=== PATIENT | female | born 1930 | race Hispanic/Latino ===

== ENCOUNTER 2016-10-10 11:00 | Outpatient (CLI) | payer MEDICARE, OTHER ==
[2016-10-10 13:07] LABS: Blood Urea Nitrogen 16 mg/dL (7-17)
[2016-10-10] MEDS ORDERED: NACL ONE (13:31)
--- NOTE | 2016-10-10 14:21 | Cat Scan Report ---
CT scan of neck with IV contrast: History: Thyroid calcification. Findings: Laryngeal and tracheal air column appears unremarkable. Pre-and paravertebral soft tissue appears normal. No evidence of adenopathy. The vascular structures grossly appears normal. The right thyroid lobe/dominant nodule measures measures 5.2 x 3.5 cm in coronal imaging. Heterogeneous enhancement is noted. Left thyroid lobe/dominant nodule measures 3.5 x 1.8 cm. Heterogeneous enhancement noted. No significant compression of intervening calcified trachea. Displacement laterally of adjacent vascular structures. Impression: Multinodular goiter. Findings as detailed above.
== END 2016-10-10 11:01 | disposition home or self-care (01) ==
LOC: CT 11:00
PROVIDERS: ATTEND Internal Medicine
DX: E06.9 Thyroiditis, unspecified (principal); R93.8 Abnormal findings on diagnostic imaging of other specified body structures; E04.2 Nontoxic multinodular goiter
CPT/HCPCS: 36415; 70491; 82565; 84520; Q9967

== ENCOUNTER 2016-12-03 13:15 | Emergency (ER) | payer MEDICARE, OTHER ==
[2016-12-03 13:40] VITALS: BP 166/97
[2016-12-03 14:27] LABS: Anion Gap 20 mmol/L; Basophils % (Auto) 0.4 % (0.0-1.8); Blood Urea Nitrogen 16 mg/dL (7-17); Calcium 9.5 mg/dL (8.4-10.2); Carbon Dioxide 26 mmol/L (22-30); Chloride 96.1 mmol/L (98-107); Eosinophils % (Auto) 0.1 % (0.0-4.3); Glucose 120 mg/dL (65-100); Hematocrit 39.7 % (30.3-42.9); Hemoglobin 13.1 gm/dl (10.1-14.3); Mean Corpuscular HGB Conc 33 % (30-34); Mean Corpuscular Hemoglobin 31 pg (28-32); Mean Corpuscular Volume 94 fl (79-97); Platelet Count 202 K/mm3 (140-440); Red Blood Count 4.24 M/mm3 (3.65-5.03); Red Cell Distribution Width 13.5 % (13.2-15.2); Sodium 137 mmol/L (137-145)
[2016-12-03 14:31] LABS: Bacteria,Urine 1+ /HPF (Negative); Bilirubin,Urine NEG (Negative); Blood,Urine MOD (Negative); Ketones,Urine NEG (Negative); Leukocyte Esterase,Urine SM (Negative); Nitrite,Urine NEG (Negative); Urobilinogen,Urine < 2.0 mg/dL (<2.0)
[2016-12-03 14:35] LABS: RBC,Urine > 182.0 /HPF (0.0-6.0); WBC,Urine > 182.0 /HPF (0.0-6.0)
[2016-12-03] MEDS ORDERED: MACROBID PO ONE (16:21)
--- NOTE | 2016-12-03 16:55 | Emergency Department Report ---
ED Female HPI - General Chief complaint: Urogenital-Female Stated complaint: BLOOD IN URINE Time Seen by Provider: 12/03/16 16:18 Source: patient Mode of arrival: Ambulatory Limitations: No Limitations - History of Present Illness Initial comments: 85-year-old female with a past medical history of right kidney surgery, hypertension, and appendectomy was in the hospital complaining of hematuria since this a.m. Patient denies pain, dysuria, fever, nausea, or vomiting. Similar symptoms in the past treated with antibiotics. Patient does not quite know with specific right kidney surgery she has had. - Related Data Home Medications Medication Instructions Recorded Confirmed Last Taken Acetaminophen [Acetaminophen TAB] 2 tab PO PRN PRN 10/27/14 12/03/16 Unknown AtorvaSTATin [Lipitor] 5 mg PO DAILY 10/27/14 12/03/16 10/26/14 Caltrate 600+D3+Min Chew Tab 1 tab PO DAILY 10/27/14 12/03/16 10/27/14 L. Acidophilus/Bifid. Animalis 2 cap PO DAILY 10/27/14 12/03/16 10/27/14 [One-A-Day Trubiotics Capsule] Metoprolol [Lopressor TAB] 1 tab PO DAILY 10/27/14 12/03/16 07/30/15 10:30 One Daily Multivitamin Tablet 1 tab PO DAILY 10/27/14 12/03/16 10/27/14 Previous Rx's Medication Instructions Recorded Last Taken Type Nitrofurantoin [place]/M-Cryst 100 mg PO Q12HR #10 capsule 12/03/16 Unknown Rx [Macrobid CAP] Allergies Allergy/AdvReac Type Severity Reaction Status Date / Time aspirin Allergy BRUISING Verified 10/27/14 11:29 Sulfa (Sulfonamide Allergy Hives Verified 10/27/14 11:29 Antibiotics) ED Review of Systems ROS: Stated complaint: BLOOD IN URINE Other details as noted in HPI Comment: All other systems reviewed and negative Other: Constitutional: No fevers chills Eyes: No eye pain visual changes ENT: No ear pain or throat pain Neck: Denies pain Respiratory: Denies cough wheezing shortness of breath Cardiovascular: Denies chest pain, palpitations, syncope GI: Denies abdominal pain, nausea, vomiting, diarrhea : Denies dysuria Musculoskeletal: Denies back pain Skin: Denies rash, lesions, erythema Neurologic: Denies headache, numbness, weakness Psychiatric: Denies suicidal ideation, hallucinations ED Past Medical Hx - Past Medical History Hx Hypertension: Yes (5YRS) - Surgical History Hx Appendectomy: Yes Additional Surgical History: right kidney, ovaries - Social History Smoking Status: Never Smoker Substance Use Type: None - Medications Home Medications: Home Medications Medication Instructions Recorded Confirmed Last Taken Type Acetaminophen [Acetaminophen TAB] 2 tab PO PRN PRN 10/27/14 12/03/16 Unknown History AtorvaSTATin [Lipitor] 5 mg PO DAILY 10/27/14 12/03/16 10/26/14 History Caltrate 600+D3+Min Chew Tab 1 tab PO DAILY 10/27/14 12/03/16 10/27/14 History L. Acidophilus/Bifid. Animalis 2 cap PO DAILY 10/27/14 12/03/16 10/27/14 History [One-A-Day Trubiotics Capsule] Metoprolol [Lopressor TAB] 1 tab PO DAILY 10/27/14 12/03/16 07/30/15 10:30 History One Daily Multivitamin Tablet 1 tab PO DAILY 10/27/14 12/03/16 10/27/14 History Nitrofurantoin [place]/M-Cryst 100 mg PO Q12HR #10 capsule 12/03/16 Unknown Rx [Macrobid CAP] ED Physical Exam - General Limitations: No Limitations - Other Other exam information: General: No limitations, patient is alert in no acute distress Head exam: Atraumatic, normocephalic Eyes exam: Normal appearance, pupils equal reactive to light, extraocular movements intact ENT: Moist mucous membrane, normal oropharynx Neck exam: Normal inspection, full range of motion, no meningismus nontender Respiratory exam: Clear to auscultation bilateral, no wheezes, rales, crackles Cardiovascular: Normal rate and rhythm, normal heart sounds Abdomen: Soft, nondistended, and nontender, with normal bowel sounds, no rebound, or guarding Extremity: Full range of motion normal inspection no deformity Back: Normal Inspection, full range of motion, no tenderness Neurologic: Alert, oriented x3, cranial nerves intact, no motor or sensory deficit Psychiatric: normal affect, normal mood Skin: Warm, dry, intact ED Course Vital Signs 12/03/16 12/03/16 13:34 15:21 Temperature 98.2 F Pulse Rate 95 H Respiratory 18 18 Rate Blood Pressure 166/97 O2 Sat by Pulse 99 Oximetry - Reevaluation(s) Reevaluation #1: 12/03/16 Macrobid by mouth given in the ED ED Medical Decision Making - Lab Data Result diagrams: 12/03/16 13:44 12/03/16 13:44 Lab Results 12/03/16 12/03/16 12/03/16 Range/Units 13:44 13:44 14:02 WBC 9.0 (4.5-11.0) K/mm3 RBC 4.24 (3.65-5.03) M/mm3 Hgb 13.1 (10.1-14.3) gm/dl Hct 39.7 (30.3-42.9) % MCV 94 (79-97) fl MCH 31 (28-32) pg MCHC 33 (30-34) % RDW 13.5 (13.2-15.2) % Plt Count 202 (140-440) K/mm3 Lymph % (Auto) 9.8 L (13.4-35.0) % [place] % (Auto) 7.4 H (0.0-7.3) % Eos % (Auto) 0.1 (0.0-4.3) % Baso % (Auto) 0.4 (0.0-1.8) % Lymph # 0.9 L (1.2-5.4) K/mm3 [place] # 0.7 (0.0-0.8) K/mm3 Eos # 0.0 (0.0-0.4) K/mm3 Baso # 0.0 (0.0-0.1) K/mm3 Seg Neutrophils % 82.3 H (40.0-70.0) % Seg Neutrophils # 7.4 (1.8-7.7) K/mm3 Sodium 137 (137-145) mmol/L Potassium 5.0 (3.6-5.0) mmol/L Chloride 96.1 L (98-107) mmol/L Carbon Dioxide 26 (22-30) mmol/L Anion Gap 20 mmol/L BUN 16 (7-17) mg/dL Creatinine 0.8 (0.7-1.2) mg/dL Estimated GFR > 60 ml/min BUN/Creatinine Ratio 20.00 % Glucose 120 H (65-100) mg/dL Calcium 9.5 (8.4-10.2) mg/dL Urine Color Red (Yellow) Urine Turbidity Clear (Clear) Urine pH 6.0 (5.0-7.0) Ur Specific [place] 1.016 (1.003-1.030) Urine Protein 100 mg/dl (Negative) mg/dL Urine Glucose (UA) Neg (Negative) mg/dL Urine Ketones Neg (Negative) mg/dL Urine Blood Mod (Negative) Urine Nitrite Neg (Negative) Urine Bilirubin Neg (Negative) Urine Urobilinogen < 2.0 (<2.0) mg/dL Ur Leukocyte Esterase Sm (Negative) Urine WBC (Auto) > 182.0 H (0.0-6.0) /HPF Urine RBC (Auto) > 182.0 (0.0-6.0) /HPF Urine Bacteria (Auto) 1+ (Negative) /HPF - Medical Decision Making Offered CAT scan to patient given history of hematuria. Patient does have normal renal function and lack of leukocytosis or pain. Patient declined CAT scan at this time stating that symptoms are similar to previous UTI in the past. Informed that culture will be sent and follow up with PMD is important to determine if further outpatient imaging is necessary - Differential Diagnosis renal colic, UTI, hemorrhagic cystitis, renal mass, nephritic syndrome Critical Care Time: No Critical care attestation.: If time is entered above; I have spent that time in minutes in the direct care of this critically ill patient, excluding procedure time. ED Disposition Clinical Impression: UTI (urinary tract infection) Disposition: DC-01 TO HOME OR SELFCARE Is pt being admited?: No Does the pt Need Aspirin: No Condition: Stable Instructions: Urinary Tract Infection in Women (ED) Additional Instructions: We have started an antibiotic for urinary tract infection. A urine culture has been sent and is pending and typically takes about 2 days to result. Please follow up with your doctor within 2-3 days and return to ER if symptoms worsen prior to follow-up. Prescriptions: Nitrofurantoin [place]/M-Cryst [Macrobid CAP] 100 mg PO Q12HR #10 capsule Referrals: PRIMARY CARE, [Primary Care Provider] - 2-3 Days Time of Disposition: 16:52
== END 2016-12-03 16:59 | disposition home or self-care (01) ==
LOC: ED 13:15
DX: N39.0 Urinary tract infection, site not specified (principal); I10 Essential (primary) hypertension; Z88.6 Allergy status to analgesic agent; Z88.2 Allergy status to sulfonamides
CPT/HCPCS: 36415; 80048; 81001; 85025; 87076; 87086; 87186; 99283

== ENCOUNTER 2019-01-03 13:41 | Inpatient (IN) | payer MEDICARE, OTHER ==
--- NOTE | 2019-01-03 14:19 | Emergency Department Report ---
Blank Doc - Documentation Documentation: 88-year-old female with chest tightness and pain. This initial assessment/diagnostic orders/clinical plan/treatment(s) is/are subject to change based on patient's health status, clinical progression and re- assessment by fellow clinical providers in the ED. Further treatment and workup at subsequent clinical providers discretion. Patient/guardians urged not to elope from the ED as their condition may be serious if not clinically assessed and managed. Initial orders include: 1- Patient sent to MAIN for further evaluation and treatment 2- labs 3- EKG 4- CXR
--- NOTE | 2019-01-03 14:42 | Emergency Department Report ---
ED General Adult HPI - General Chief complaint: Chest Pain Stated complaint: DISCOMFORT IN CHEST Time Seen by Provider: 01/03/19 14:18 Source: patient, RN notes reviewed, old records reviewed Mode of arrival: Ambulatory Limitations: No Limitations - History of Present Illness Initial comments: During the history and physical examination, I am patient insurance clerk and escorted by nurse Mary Powell Primary care Dr[place]: Dr. Godinez Cardiology: Dr. Martinez This is a pleasant 88-year-old female who is not known to this provider previously. The patient does not know what medications she takes. Apparently, she may have a history of hypertension and high cholesterol. She presents to the ER today with a complaint of 1 day general weakness and chest pressure. She denies headache, neck pain, no different shortness of breath, she denies lower extremity swelling, she denies abdominal pain, and she denies hematemesis and bright red blood per rectum. She denies urinary symptoms. She denies DVT and pulmonary embolism risk factors. The chest tightness does not radiate anywhere. As far as patient knows, she's never had A. fib or a flutter. -: Gradual Location: chest Severity scale (0 -10): 8 Quality: other Consistency: other Improves with: other Worsens with: other - Related Data Home Medications Medication Instructions Recorded Confirmed Last Taken Acetaminophen [Acetaminophen TAB] 2 tab PO PRN PRN 10/27/14 12/03/16 Unknown AtorvaSTATin [Lipitor] 5 mg PO DAILY 10/27/14 12/03/16 10/26/14 Caltrate 600+D3+Min Chew Tab 1 tab PO DAILY 10/27/14 12/03/16 10/27/14 L. Acidophilus/Bifid. Animalis 2 cap PO DAILY 10/27/14 12/03/16 10/27/14 [One-A-Day Trubiotics Capsule] Metoprolol [Lopressor TAB] 1 tab PO DAILY 10/27/14 12/03/16 07/30/15 10:30 One Daily Multivitamin Tablet 1 tab PO DAILY 10/27/14 12/03/16 10/27/14 Previous Rx's Medication Instructions Recorded Last Taken Type Nitrofurantoin [place]/M-Cryst 100 mg PO Q12HR #10 capsule 12/03/16 Unknown Rx [Macrobid CAP] Allergies Allergy/AdvReac Type Severity Reaction Status Date / Time aspirin Allergy BRUISING Verified 10/27/14 11:29 Sulfa (Sulfonamide Allergy Hives Verified 10/27/14 11:29 Antibiotics) ED Review of Systems ROS: Stated complaint: DISCOMFORT IN CHEST Other details as noted in HPI Constitutional: malaise. denies: fever ENT: denies: epistaxis Respiratory: denies: cough, wheezing Cardiovascular: denies: syncope Gastrointestinal: denies: nausea, vomiting, hematemesis, melena, hematochezia Genitourinary: denies: dysuria Musculoskeletal: denies: back pain Skin: denies: lesions Neurological: weakness Hematological/Lymphatic: denies: easy bleeding ED Past Medical Hx - Past Medical History Hx Hypertension: Yes (5YRS) - Surgical History Hx Appendectomy: Yes Additional Surgical History: right kidney, ovaries - Social History Smoking Status: Never Smoker Substance Use Type: None - Medications Home Medications: Home Medications Medication Instructions Recorded Confirmed Last Taken Type Acetaminophen [Acetaminophen TAB] 2 tab PO PRN PRN 10/27/14 12/03/16 Unknown History AtorvaSTATin [Lipitor] 5 mg PO DAILY 10/27/14 12/03/16 10/26/14 History Caltrate 600+D3+Min Chew Tab 1 tab PO DAILY 10/27/14 12/03/16 10/27/14 History L. Acidophilus/Bifid. Animalis 2 cap PO DAILY 10/27/14 12/03/16 10/27/14 History [One-A-Day Trubiotics Capsule] Metoprolol [Lopressor TAB] 1 tab PO DAILY 10/27/14 12/03/16 07/30/15 10:30 History One Daily Multivitamin Tablet 1 tab PO DAILY 10/27/14 12/03/16 10/27/14 History Nitrofurantoin [place]/M-Cryst 100 mg PO Q12HR #10 capsule 12/03/16 Unknown Rx [Macrobid CAP] ED Physical Exam - General Limitations: No Limitations General appearance: alert, in no apparent distress - Head Head exam: Present: atraumatic, normocephalic - Eye Eye exam: Present: normal appearance, EOMI. Absent: nystagmus - ENT ENT exam: Present: normal exam, normal orophraynx, mucous membranes moist, no rmal external ear exam - Neck Neck exam: Present: normal inspection, full ROM. Absent: tenderness, meningismus - Respiratory Respiratory exam: Present: decreased breath sounds. Absent: respiratory distress, wheezes, rales, rhonchi, stridor - Cardiovascular Cardiovascular Exam: Present: tachycardia, irregular rhythm, normal heart sounds. Absent: systolic murmur, diastolic murmur, rubs, gallop - GI/Abdominal GI/Abdominal exam: Present: soft. Absent: distended, tenderness, guarding, rebound, rigid, pulsatile mass - Extremities Exam Extremities exam: Present: normal inspection, full ROM, pedal edema, other (2+ pulses noted in the bilateral upper, lower extremities. There is no long bone tenderness. Musculoskeletal compartments are soft. The pelvis is stable.). Absent: calf tenderness - Back Exam Back exam: Present: normal inspection, full ROM. Absent: tenderness, CVA tenderness (R), CVA tenderness (L), paraspinal tenderness, vertebral tenderness - Neurological Exam Neurological exam: Present: alert, other (there is no facial droop. The tongue is midline. Extraocular movements are intact bilaterally. Patient speaking in full complete sentences. Shoulder shrug is intact bilaterally. Hearing is grossly intact bilaterally. Visual acuity intact to finger counting and color perception at a close distance. 5/5 strength 4 extremities. Sensation intact to light touch in 4 extremities.) - Psychiatric Psychiatric exam: Present: normal affect, normal mood - Skin Skin exam: Present: warm, dry, intact, normal color. Absent: rash ED Course Vital Signs 01/03/19 01/03/19 14:19 14:38 Temperature 97.8 F Pulse Rate 124 H 108 H Respiratory 22 20 Rate Blood Pressure 145/85 Blood Pressure 126/81 [Left] O2 Sat by Pulse 100 100 Oximetry ED Medical Decision Making - Lab Data Result diagrams: 01/03/19 14:27 01/03/19 14:27 Vital Signs 01/03/19 01/03/19 14:19 14:38 Temperature 97.8 F Pulse Rate 124 H 108 H Respiratory 22 20 Rate Blood Pressure 145/85 Blood Pressure 126/81 [Left] O2 Sat by Pulse 100 100 Oximetry Lab Results 01/03/19 01/03/19 01/03/19 Range/Units 14:27 14:27 14:27 WBC 11.4 H (4.5-11.0) K/mm3 RBC 4.04 (3.65-5.03) M/mm3 Hgb 12.2 (10.1-14.3) gm/dl Hct 37.2 (30.3-42.9) % MCV 92 (79-97) fl MCH 30 (28-32) pg MCHC 33 (30-34) % RDW 14.2 (13.2-15.2) % Plt Count 192 (140-440) K/mm3 Add Manual Diff Complete Total Counted 100 Seg Neuts % (Manual) 83.0 H (40.0-70.0) % Band Neutrophils % 0 % Lymphocytes % (Manual) 7.0 L (13.4-35.0) % Reactive Lymphs % (Man) 0 % Monocytes % (Manual) 10.0 H (0.0-7.3) % Eosinophils % (Manual) 0 (0.0-4.3) % Basophils % (Manual) 0 (0.0-1.8) % Metamyelocytes % 0 % Myelocytes % 0 % Promyelocytes % 0 % Blast Cells % 0 % Nucleated RBC % Not Reportable Seg Neutrophils # Man 9.5 H (1.8-7.7) K/mm3 Band Neutrophils # 0.0 K/mm3 Lymphocytes # (Manual) 0.8 L (1.2-5.4) K/mm3 Abs React Lymphs (Man) 0.0 K/mm3 Monocytes # (Manual) 1.1 H (0.0-0.8) K/mm3 Eosinophils # (Manual) 0.0 (0.0-0.4) K/mm3 Basophils # (Manual) 0.0 (0.0-0.1) K/mm3 Metamyelocytes # 0.0 K/mm3 Myelocytes # 0.0 K/mm3 Promyelocytes # 0.0 K/mm3 Blast Cells # 0.0 K/mm3 WBC Morphology Not Reportable Hypersegmented Neuts Not Reportable Hyposegmented Neuts Not Reportable Hypogranular Neuts Not Reportable Smudge Cells Not Reportable Toxic Granulation Not Reportable Toxic Vacuolation Not Reportable Dohle Bodies Not Reportable Pelger-Huet Anomaly Not Reportable Ifeanyi Rods Not Reportable Platelet Estimate Not Reportable Clumped Platelets Not Reportable Plt Clumps, EDTA Not Reportable Large Platelets Not Reportable Giant Platelets Not Reportable Platelet Satelliting Not Reportable Plt Morphology Comment Not Reportable RBC Morphology Normal Dimorphic RBCs Not Reportable Polychromasia Not Reportable Hypochromasia Not Reportable Poikilocytosis Not Reportable Anisocytosis Not Reportable Microcytosis Not Reportable Macrocytosis Not Reportable Spherocytes Not Reportable Pappenheimer Bodies Not Reportable Sickle Cells Not Reportable Target Cells Not Reportable Tear Drop Cells Not Reportable Ovalocytes Not Reportable Helmet Cells Not Reportable [place]-Callender Bodies Not Reportable [place] Rings Not Reportable [place] Cells Not Reportable Bite Cells Not Reportable Crenated Cell Not Reportable Elliptocytes Not Reportable Acanthocytes (Spur) Not Reportable Rouleaux Not Reportable Hemoglobin C Crystals Not Reportable Schistocytes Not Reportable Malaria parasites Not Reportable Donald Bodies Not Reportable Hem Pathologist Commnt No PT 14.9 (12.2-14.9) Sec. INR 1.18 H (0.87-1.13) APTT 33.2 (24.2-36.6) Sec. Sodium 138 (137-145) mmol/L Potassium 4.1 (3.6-5.0) mmol/L Chloride 100.3 (98-107) mmol/L Carbon Dioxide 24 (22-30) mmol/L Anion Gap 18 mmol/L BUN 20 H (7-17) mg/dL Creatinine 0.9 (0.7-1.2) mg/dL Estimated GFR 59 ml/min BUN/Creatinine Ratio 22 % Glucose 126 H (65-100) mg/dL Lactic Acid (0.7-2.0) mmol/L Calcium 9.2 (8.4-10.2) mg/dL Magnesium (1.7-2.3) mg/dL Total Bilirubin 1.40 H (0.1-1.2) mg/dL AST 37 (5-40) units/L ALT 22 (7-56) units/L Alkaline Phosphatase 123 (35-129) units/L Total Creatine Kinase (30-135) units/L Troponin T < 0.010 (0.00-0.029) ng/mL Total Protein 7.2 (6.3-8.2) g/dL Albumin 4.2 (3.9-5) g/dL Albumin/Globulin Ratio 1.4 % TSH (0.270-4.200) mlU/mL 01/03/19 01/03/19 01/03/19 Range/Units 14:48 14:48 15:16 WBC (4.5-11.0) K/mm3 RBC (3.65-5.03) M/mm3 Hgb (10.1-14.3) gm/dl Hct (30.3-42.9) % MCV (79-97) fl MCH (28-32) pg MCHC (30-34) % RDW (13.2-15.2) % Plt Count (140-440) K/mm3 Add Manual Diff Total Counted Seg Neuts % (Manual) (40.0-70.0) % Band Neutrophils % % Lymphocytes % (Manual) (13.4-35.0) % Reactive Lymphs % (Man) % Monocytes % (Manual) (0.0-7.3) % Eosinophils % (Manual) (0.0-4.3) % Basophils % (Manual) (0.0-1.8) % Metamyelocytes % % Myelocytes % % Promyelocytes % % Blast Cells % % Nucleated RBC % Seg Neutrophils # Man (1.8-7.7) K/mm3 Band Neutrophils # K/mm3 Lymphocytes # (Manual) (1.2-5.4) K/mm3 Abs React Lymphs (Man) K/mm3 Monocytes # (Manual) (0.0-0.8) K/mm3 Eosinophils # (Manual) (0.0-0.4) K/mm3 Basophils # (Manual) (0.0-0.1) K/mm3 Metamyelocytes # K/mm3 Myelocytes # K/mm3 Promyelocytes # K/mm3 Blast Cells # K/mm3 WBC Morphology Hypersegmented Neuts Hyposegmented Neuts Hypogranular Neuts Smudge Cells Toxic Granulation Toxic Vacuolation Dohle Bodies Pelger-Huet Anomaly Ifeanyi Rods Platelet Estimate Clumped Platelets Plt Clumps, EDTA Large Platelets Giant Platelets Platelet Satelliting Plt Morphology Comment RBC Morphology Dimorphic RBCs Polychromasia Hypochromasia Poikilocytosis Anisocytosis Microcytosis Macrocytosis Spherocytes Pappenheimer Bodies Sickle Cells Target Cells Tear Drop Cells Ovalocytes Helmet Cells [place]-Callender Bodies [place] Rings [place] Cells Bite Cells Crenated Cell Elliptocytes Acanthocytes (Spur) Rouleaux Hemoglobin C Crystals Schistocytes Malaria parasites Donald Bodies Hem Pathologist Commnt PT (12.2-14.9) Sec. INR (0.87-1.13) APTT (24.2-36.6) Sec. Sodium (137-145) mmol/L Potassium (3.6-5.0) mmol/L Chloride (98-107) mmol/L Carbon Dioxide (22-30) mmol/L Anion Gap mmol/L BUN (7-17) mg/dL Creatinine (0.7-1.2) mg/dL Estimated GFR ml/min BUN/Creatinine Ratio % Glucose (65-100) mg/dL Lactic Acid 1.40 (0.7-2.0) mmol/L Calcium (8.4-10.2) mg/dL Magnesium 1.80 (1.7-2.3) mg/dL Total Bilirubin (0.1-1.2) mg/dL AST (5-40) units/L ALT (7-56) units/L Alkaline Phosphatase (35-129) units/L Total Creatine Kinase 58 (30-135) units/L Troponin T (0.00-0.029) ng/mL Total Protein (6.3-8.2) g/dL Albumin (3.9-5) g/dL Albumin/Globulin Ratio % TSH 0.811 (0.270-4.200) mlU/mL - EKG Data -: EKG Interpreted by Wi - EKG Data 01/03/19 15:59 EKG today is not consistent with ST elevation myocardial infarction. There is A. fib, rapid ventricular rate, 124 bpm, motion artifact, QTC is prolonged, there is low voltage, the EKG is abnormal, the EKG is not consistent with ST elevation myocardial infarction. - Radiology Data Radiology results: pending, report reviewed, image reviewed X-ray the chest shows bilateral pleural effusions, mild pulmonary vascular congestion, suspect interstitial edema - Medical Decision Making Differential diagnosis, including but not limited to: Pneumonia, urinary tract infection, CHF, electrolyte derangement, acute coronary syndrome Assessment and plan: 88-year-old female found to be in A. fib with RVR, also found to have lower extremity edema, x-ray the chest suggest pleural effusions, suspect mild to moderate congestive heart failure, also found to have acute febrile illness to 100.8. Patient has objective evidence of fluid overload does not meet sepsis criteria at this time. She will be given Lasix, ceftriaxone, Tylenol, and full dose Lovenox. Contacted cardiology nurse practitioner on-call, Daria Hilliard, whose group will following consultation. Contacted Hospital physician, Dr. Jeff, who will accept the patient to the medical service. Heart rate now 105 bpm, tachycardia is likely compensatory, likely secondary to congestive heart failure, as well as acute febrile illness, therefore, we will hold hector blocking agents at this time. Discussed plan of care for admission with patient, who verbalizes understanding, and was amenable to this plan of care. Critical care attestation.: If time is entered above; I have spent that time in minutes in the direct care of this critically ill patient, excluding procedure time. ED Disposition Clinical Impression: Atrial fibrillation with RVR, Acute CHF, Acute febrile illness Disposition: OP ADMIT IP TO THIS HOSP Is pt being admited?: Yes Condition: Stable
[2019-01-03] MEDS ORDERED: ACETAMINOPHEN 500 MG TAB PO ONE (14:50)
[2019-01-03] MEDS ORDERED: SODIUM CHLORIDE 0.9% 250ML 250 ML IV ONE (14:50)
--- NOTE | 2019-01-03 14:51 | XRay Report ---
CHEST 1 VIEW INDICATION: Chest Pain. COMPARISON: None. FINDINGS: Support devices: None. Heart: Enlarged. Lungs/Pleura: There are small bilateral pleural effusions. In addition to presumed atelectasis in the bases, mild increased interstitial markings are suggestive of interstitial edema. IMPRESSION: 1. Probable congestive heart failure. Signer Name: Dax Colon MD Signed: 01/03/2019 2:47 PM Workstation Name: [id number]
[2019-01-03 14:53] LABS: Hematocrit 37.2 % (30.3-42.9); Hemoglobin 12.2 gm/dl (10.1-14.3); Mean Corpuscular HGB Conc 33 % (30-34); Mean Corpuscular Volume 92 fl (79-97); Platelet Count 192 K/mm3 (140-440); Red Blood Count 4.04 M/mm3 (3.65-5.03); Red Cell Distribution Width 14.2 % (13.2-15.2)
[2019-01-03 15:08] LABS: Alanine Aminotransferase 22 units/L (7-56); Albumin 4.2 g/dL (3.9-5); BUN/Creatinine Ratio 22; Blood Urea Nitrogen 20 mg/dL (7-17); Calcium 9.2 mg/dL (8.4-10.2); Hemolysis Index 8; INR 1.18 (0.87-1.13); Partial Thromboplastin Time 33.2 Sec. (24.2-36.6)
[2019-01-03] MEDS ORDERED: cefTRIAXone/NS 1 GM/50 ML 1 GM/50 ML BAG IV ONE (15:30)
[2019-01-03 15:55] LABS: Basophils % (Manual) 0 % (0.0-1.8); Eosinophils % (Manual) 0 % (0.0-4.3); RBC Morphology Normal; Total Cells Counted 100
[2019-01-03] MEDS ORDERED: FUROSEMIDE 20 MG/2 ML INJ IV ONE (15:56)
[2019-01-03] MEDS ORDERED: ONDANSETRON 4 MG/2 ML INJ IV PRN (15:59)
[2019-01-03] MEDS ORDERED: ACETAMINOPHEN 325 MG TAB PO PRN (15:59)
[2019-01-03] MEDS ORDERED: ACETAMINOPHEN 500 MG TAB PO PRN (16:00)
[2019-01-03] MEDS ORDERED: ENOXAPARIN 100 MG/1 ML INJ SUB-Q STA (16:02)
--- NOTE | 2019-01-03 16:52 | History and Physical Report ---
History of Present Illness Chief complaint: My chest didnt feel right. History of present illness: 88 YO Female with HTN present to ED for evaluation. Pt states that she has experienced chest palpitations over the past 2 days with persistent symptoms over the past 2 days. Pt acknowledges decreased exercise tolerance, dypsnea on exertion, chest palpitations. Pt notified a neighbor, and the patient was subsequently transported to [facility] via private vehicle. Pt seen and evaluated in ED and found to have new onset Atrial Fib with RVR, UTI, as well as symptoms consistent with CHF Decompensation. Cardiology consulted in ED. Pt denies fever, chills, NVD, Trauma, BRBPR, Productive cough, unintentional weight loss, night sweats, skin rash, neck swelling, difficulty swallowing, or recent ill contacts. No prior admissions for review. All listed medication reconciled at time of admission. Primary care Dr.: Dr. Godinez Cardiology: Dr. Martinez Past History Past Medical History: hypertension Past Surgical History: appendectomy, Other (Ovarian surgery, Right Kidney) Social history: . denies: smoking, alcohol abuse, prescription drug abuse Family history: hypertension Medications and Allergies Allergies Allergy/AdvReac Type Severity Reaction Status Date / Time aspirin Allergy BRUISING Verified 10/27/14 11:29 Sulfa (Sulfonamide Allergy Hives Verified 10/27/14 11:29 Antibiotics) Home Medications Medication Instructions Recorded Confirmed Last Taken Type Acetaminophen [Acetaminophen TAB] 2 tab PO PRN PRN 10/27/14 12/03/16 Unknown History AtorvaSTATin [Lipitor] 5 mg PO DAILY 10/27/14 12/03/16 10/26/14 History Caltrate 600+D3+Min Chew Tab 1 tab PO DAILY 10/27/14 12/03/16 10/27/14 History L. Acidophilus/Bifid. Animalis 2 cap PO DAILY 10/27/14 12/03/16 10/27/14 History [One-A-Day Trubiotics Capsule] Metoprolol [Lopressor TAB] 1 tab PO DAILY 10/27/14 12/03/16 07/30/15 10:30 History One Daily Multivitamin Tablet 1 tab PO DAILY 10/27/14 12/03/16 10/27/14 History Nitrofurantoin [place]/M-Cryst 100 mg PO Q12HR #10 capsule 12/03/16 Unknown Rx [Macrobid CAP] Active Meds: Active Medications Acetaminophen (Tylenol) 650 mg PO Q4H PRN PRN Reason: Pain MILD(1-3)/Fever >100.5/TOPETE Atorvastatin Calcium (Atorvastatin) 5 mg PO QHS [facility] Calcium/Vitamin D (Oysco D 500 Mg-200 Unit) 1 each PO DAILY [facility] Ceftriaxone Sodium (Rocephin/Ns 1 Gm/50 Ml) 1 gm in 50 mls @ 100 mls/hr IV Q24HR [facility]; Protocol Lactobacillus Rhamnosus (Culturelle) 2 each PO DAILY [facility] Metoprolol Tartrate (Metoprolol) 100 mg PO DAILY [facility] Multivitamins/Minerals (Theragran-M Tab) 1 each PO QDAY [facility] Ondansetron HCl (Zofran) 4 mg IV Q8H PRN PRN Reason: Nausea And Vomiting Sodium Chloride (Sodium Chloride Flush Syringe 10 Ml) 10 ml IV BID [place] Sodium Chloride (Sodium Chloride Flush Syringe 10 Ml) 10 ml IV PRN PRN PRN Reason: LINE FLUSH Review of Systems Constitutional: no weight loss, no weight gain, no fever, no chills Ears, nose, mouth and throat: no ear pain, no ear discharge, no tinnitis, no decreased hearing, no nose pain Breasts: no change in shape, no swelling, no mass Cardiovascular: palpitations, rapid/irregular heart beat, dyspnea on exertion, decreased exercise tolerance, no chest pain, no orthopnea, no lightheadedness Respiratory: no cough, no cough with sputum, no excessive sputum, no hemoptysis Gastrointestinal: no nausea, no vomiting, no diarrhea, no constipation Genitourinary Female: no pelvic pain, no flank pain, no menorrhagia, no dysuria, no urinary frequency, no urgency Rectal: no pain, no incontinence, no bleeding Musculoskeletal: no neck stiffness, no neck pain, no shooting arm pain, no arm numbness/tingling, no low back pain Integumentary: no rash, no pruritis, no redness, no sores, no wounds, no jaundice Neurological: no paralysis, no weakness, no parathesias, no numbness, no tingling, no seizures, no syncope Psychiatric: no anxiety, no memory loss, no change in sleep habits, no sleep disturbances, no insomnia, no hypersomnia, no change in appetite Endocrine: no cold intolerance, no heat intolerance, no polyphagia, no excessive thirst, no polydipsia, no polyuria, no nocturia Hematologic/Lymphatic: no easy bruising, no easy bleeding, no lymphadenopathy, no lymphedema Allergic/Immunologic: no urticaria, no allergic rhinitis, no wheezing, no persistent infections, no anaphylaxis, no angioedema Exam - Constitutional Vitals: Temp Pulse Resp BP Pulse Ox 97.8 F 108 H 20 126/81 100 01/03/19 14:19 01/03/19 14:38 01/03/19 14:38 01/03/19 14:38 01/03/19 14:38 General appearance: Present: mild distress - EENT Eyes: Present: PERRL ENT: hearing intact, clear oral mucosa - Neck Neck: Present: supple, normal ROM - Respiratory Respiratory effort: normal Respiratory: bilateral: CTA - Cardiovascular Heart Sounds: Present: S1 & S2. Absent: rub, click - Extremities Extremities: pulses symmetrical, No edema Peripheral Pulses: within normal limits - Abdominal General gastrointestinal: Present: soft, non-tender, non-distended, normal bowel sounds Female genitourinary: Present: normal - Integumentary Integumentary: Present: clear, warm, dry - Musculoskeletal Musculoskeletal: gait normal, strength equal bilaterally - Psychiatric Psychiatric: appropriate mood/affect, intact judgment & insight - Neurologic Neurologic: CNII-XII intact, moves all extremities Results - Labs CBC & Chem 7: 01/03/19 14:27 01/03/19 14:27 Labs: Abnormal lab results 01/03/19 01/03/19 01/03/19 Range/Units 14:27 14:27 14:27 WBC 11.4 H (4.5-11.0) K/mm3 Seg Neuts % (Manual) 83.0 H (40.0-70.0) % Lymphocytes % (Manual) 7.0 L (13.4-35.0) % Monocytes % (Manual) 10.0 H (0.0-7.3) % Seg Neutrophils # Man 9.5 H (1.8-7.7) K/mm3 Lymphocytes # (Manual) 0.8 L (1.2-5.4) K/mm3 Monocytes # (Manual) 1.1 H (0.0-0.8) K/mm3 INR 1.18 H (0.87-1.13) BUN 20 H (7-17) mg/dL Glucose 126 H (65-100) mg/dL Total Bilirubin 1.40 H (0.1-1.2) mg/dL NT-Pro-B Natriuret Pep (0-900) pg/mL 01/03/19 Range/Units 15:16 WBC (4.5-11.0) K/mm3 Seg Neuts % (Manual) (40.0-70.0) % Lymphocytes % (Manual) (13.4-35.0) % Monocytes % (Manual) (0.0-7.3) % Seg Neutrophils # Man (1.8-7.7) K/mm3 Lymphocytes # (Manual) (1.2-5.4) K/mm3 Monocytes # (Manual) (0.0-0.8) K/mm3 INR (0.87-1.13) BUN (7-17) mg/dL Glucose (65-100) mg/dL Total Bilirubin (0.1-1.2) mg/dL NT-Pro-B Natriuret Pep 4272 H (0-900) pg/mL Assessment and Plan - Patient Problems (1) Atrial fibrillation with RVR Current Visit: Yes Status: Acute Plan to address problem: Admit to telemetry, Rate control with Metoprolol, Echo, thyroid panel, cardiology consulted in ED. CHADS 2 Vasc Score:4, Therapeutic anticoagulation (2) Acute CHF Current Visit: Yes Status: Acute Qualifiers: Heart failure type: systolic Qualified Code(s): I50.21 - Acute systolic (congestive) heart failure Plan to address problem: Admit to telemetry, Chest x ray, bnp, thyroid panel, supplemental oxygen, pulse oximetry, diuresis, monitor uop q shift, cardiology consulted in ED, Echo (3) UTI (urinary tract infection) Current Visit: Yes Status: Acute Qualifiers: Encounter type: initial encounter Plan to address problem: IV antibiotic therapy, CBC, urinalysis. (4) SIRS (systemic inflammatory response syndrome) Current Visit: Yes Status: Acute Plan to address problem: IV antibiotic therapy, CBC, CMP, Chest x ray, urinalysis. (5) Advance care planning Current Visit: Yes Status: Acute Plan to address problem: +30 min dedicated to care planning. Discussed prognosis, code status: Pt is a full code. Pt and neighbor acknowledge understanding and agreement with care plan. (6) HTN (hypertension) Current Visit: Yes Status: Acute Qualifiers: Hypertension type: essential hypertension Qualified Code(s): I10 - Essential (primary) hypertension Plan to address problem: Monitor BP q shift, continue metoprolol (7) DVT prophylaxis Current Visit: Yes Status: Acute Plan to address problem: SCD to BLE while in bed,
[2019-01-03 17:23] LABS: Free T4 (Free Thyroxine) 1.87 ng/dL (0.76-1.46)
[2019-01-03] MEDS ORDERED: FUROSEMIDE 20 MG/2 ML INJ ONE (17:33)
[2019-01-03] MEDS ORDERED: ENOXAPARIN 30 MG/0.3 ML INJ SUB-Q ONE (17:34)
[2019-01-03] MEDS: APIXABAN 2.5 MG TAB PO SCH (22:03)
[2019-01-04 01:05] LABS: Bilirubin,Urine NEG (Negative); Blood,Urine SM (Negative); Color,Urine Straw (Yellow); Mucus,Urine FEW /HPF; Protein,Urine <15 mg/dL mg/dL (Negative); Urobilinogen,Urine < 2.0 mg/dL (<2.0)
[2019-01-04 05:42] LABS: Basophils % (Auto) 0.3 % (0.0-1.8); Eosinophils % (Auto) 0.4 % (0.0-4.3); Hematocrit 34.9 % (30.3-42.9); Hemoglobin 11.3 gm/dl (10.1-14.3); Lymphocytes # (Auto) 1.2 K/mm3 (1.2-5.4); Lymphocytes % (Auto) 15.8 % (13.4-35.0); Mean Corpuscular HGB Conc 32 % (30-34); Mean Corpuscular Volume 95 fl (79-97); Monocytes # (Auto) 1.1 K/mm3 (0.0-0.8); Monocytes % (Auto) 14.6 % (0.0-7.3); Platelet Count 156 K/mm3 (140-440); Red Blood Count 3.67 M/mm3 (3.65-5.03); Red Cell Distribution Width 14.6 % (13.2-15.2)
[2019-01-04 06:31] LABS: Albumin 3.6 g/dL (3.9-5); Calcium 8.9 mg/dL (8.4-10.2)
--- NOTE | 2019-01-04 09:16 | Consultation ---
<HONEY WHITESIDE - Last Filed: 01/04/19 13:20> History of Present Illness Consult date: 01/04/19 Consult reason: atrial fibrillation History of present illness: This is an elderly woman who presented with complaints of chest pressure. Noted with lower extremity edema. A chest x-ray reports mild interstitial edema. Cycled troponin were normal. An ECG done shows atrial fibrillation with a rapid ventricular response. Patient is known to [facility] and has a history of atrial fibrillation. She is on metoprolol for rate control and takes pradaxa for oral anticoagulation. Her latest outpatient echocardiogram reports a normal left ventricular systolic function, ejection fraction 55%. Past History Past Medical History: hypertension Past Surgical History: appendectomy, Other (Ovarian surgery, Right Kidney) Social history: . denies: smoking, alcohol abuse, prescription drug abuse Family history: hypertension Medications and Allergies Allergies Allergy/AdvReac Type Severity Reaction Status Date / Time aspirin Allergy BRUISING Verified 10/27/14 11:29 Sulfa (Sulfonamide Allergy Hives Verified 10/27/14 11:29 Antibiotics) Home Medications Medication Instructions Recorded Confirmed Last Taken Type Acetaminophen [Acetaminophen TAB] 2 tab PO PRN PRN 10/27/14 12/03/16 Unknown History AtorvaSTATin [Lipitor] 5 mg PO DAILY 10/27/14 12/03/16 10/26/14 History Caltrate 600+D3+Min Chew Tab 1 tab PO DAILY 10/27/14 12/03/16 10/27/14 History L. Acidophilus/Bifid. Animalis 2 cap PO DAILY 10/27/14 12/03/16 10/27/14 History [One-A-Day Trubiotics Capsule] Metoprolol [Lopressor TAB] 1 tab PO DAILY 10/27/14 12/03/16 07/30/15 10:30 History One Daily Multivitamin Tablet 1 tab PO DAILY 10/27/14 12/03/16 10/27/14 History Nitrofurantoin [place]/M-Cryst 100 mg PO Q12HR #10 capsule 12/03/16 Unknown Rx [Macrobid CAP] Active Meds: Active Medications Acetaminophen (Tylenol) 650 mg PO Q4H PRN PRN Reason: Pain MILD(1-3)/Fever >100.5/TOPETE Last Admin: 01/04/19 00:20 Dose: 650 mg Documented by: Apixaban (Eliquis) 2.5 mg PO Q12HR [facility]; Protocol Last Admin: 01/03/19 22:03 Dose: 2.5 mg Documented by: Atorvastatin Calcium (Atorvastatin) 5 mg PO QHS [facility] Last Admin: 01/03/19 22:02 Dose: 5 mg Documented by: Calcium/Vitamin D (Oysco D 500 Mg-200 Unit) 1 each PO DAILY [facility] Ceftriaxone Sodium (Rocephin/Ns 1 Gm/50 Ml) 1 gm in 50 mls @ 100 mls/hr IV Q24HR [facility]; Protocol Lactobacillus Rhamnosus (Culturelle) 2 each PO DAILY [facility] Metoprolol Tartrate (Metoprolol) 100 mg PO DAILY [facility] Multivitamins/Minerals (Theragran-M Tab) 1 each PO QDAY [facility] Ondansetron HCl (Zofran) 4 mg IV Q8H PRN PRN Reason: Nausea And Vomiting Sodium Chloride (Sodium Chloride Flush Syringe 10 Ml) 10 ml IV BID [facility] Last Admin: 01/03/19 22:03 Dose: 10 ml Documented by: Sodium Chloride (Sodium Chloride Flush Syringe 10 Ml) 10 ml IV PRN PRN PRN Reason: LINE FLUSH Physical Examination Vital Signs Temp Pulse Resp BP Pulse Ox 97.8 F 124 H 22 145/85 100 01/03/19 14:19 01/03/19 14:19 01/03/19 14:19 01/03/19 14:19 01/03/19 14:19 General appearance: no acute distress HEENT: Positive: PERRL Neck: Positive: trachea midline Cardiac: Positive: irregularly irregular Lungs: Positive: Decreased Breath Sounds Neuro: Positive: Grossly Intact Extremities: Present: +1 Edema Results 01/04/19 04:17 01/04/19 04:17 Cardiac Enzymes 01/03/19 01/04/19 Range/Units 14:27 04:17 AST 37 33 (5-40) units/L Coagulation 01/03/19 Range/Units 14:27 PT 14.9 (12.2-14.9) Sec. INR 1.18 H (0.87-1.13) APTT 33.2 (24.2-36.6) Sec. CBC 01/03/19 01/04/19 Range/Units 14:27 04:17 WBC 11.4 H 7.6 (4.5-11.0) K/mm3 RBC 4.04 3.67 (3.65-5.03) M/mm3 Hgb 12.2 11.3 (10.1-14.3) gm/dl Hct 37.2 34.9 (30.3-42.9) % Plt Count 192 156 (140-440) K/mm3 Lymph # 1.2 (1.2-5.4) K/mm3 [place] # 1.1 H (0.0-0.8) K/mm3 Eos # 0.0 (0.0-0.4) K/mm3 Baso # 0.0 (0.0-0.1) K/mm3 Comprehensive Metabolic Panel 01/03/19 01/04/19 Range/Units 14:27 04:17 Sodium 138 138 (137-145) mmol/L Potassium 4.1 4.2 (3.6-5.0) mmol/L Chloride 100.3 101.3 (98-107) mmol/L Carbon Dioxide 24 21 L (22-30) mmol/L BUN 20 H 21 H (7-17) mg/dL Creatinine 0.9 0.9 (0.7-1.2) mg/dL Glucose 126 H 104 H (65-100) mg/dL Calcium 9.2 8.9 (8.4-10.2) mg/dL AST 37 33 (5-40) units/L ALT 22 19 (7-56) units/L Alkaline Phosphatase 123 108 (35-129) units/L Total Protein 7.2 6.5 (6.3-8.2) g/dL Albumin 4.2 3.6 L (3.9-5) g/dL Assessment and Plan Acute heart failure Atrial fibrillation, persistent on metoprolol and pradaxa as an outpatient Hypertension We will obtain an echocardiogram for LVEF assessment. Continue rate controlling agents and oral anticoagulation for atrial fibrillation that persists. <CLARENCE BAUTISTA - Last Filed: 01/04/19 20:32> Medications and Allergies Active Meds: Active Medications Acetaminophen (Tylenol) 650 mg PO Q4H PRN PRN Reason: Pain MILD(1-3)/Fever >100.5/TOPETE Last Admin: 01/04/19 00:20 Dose: 650 mg Documented by: Apixaban (Eliquis) 2.5 mg PO Q12HR [place]; Protocol Last Admin: 01/04/19 10:13 Dose: 2.5 mg Documented by: Atorvastatin Calcium (Atorvastatin) 5 mg PO QHS [facility] Last Admin: 01/03/19 22:02 Dose: 5 mg Documented by: Calcium/Vitamin D (Oysco D 500 Mg-200 Unit) 1 each PO DAILY [facility] Last Admin: 01/04/19 10:12 Dose: 1 each Documented by: Ceftriaxone Sodium (Rocephin/Ns 1 Gm/50 Ml) 1 gm in 50 mls @ 100 mls/hr IV Q 24HR [facility]; Protocol Last Admin: 01/04/19 10:17 Dose: 100 mls/hr Documented by: Lactobacillus Rhamnosus (Culturelle) 2 each PO DAILY [facility] Last Admin: 01/04/19 10:36 Dose: 2 each Documented by: Metoprolol Tartrate (Metoprolol) 100 mg PO DAILY [facility] Last Admin: 01/04/19 10:16 Dose: 100 mg Documented by: Multivitamins/Minerals (Theragran-M Tab) 1 each PO QDAY [facility] Last Admin: 01/04/19 10:16 Dose: 1 each Documented by: Ondansetron HCl (Zofran) 4 mg IV Q8H PRN PRN Reason: Nausea And Vomiting Sodium Chloride (Sodium Chloride Flush Syringe 10 Ml) 10 ml IV BID [facility] Last Admin: 01/04/19 10:32 Dose: 10 ml Documented by: Sodium Chloride (Sodium Chloride Flush Syringe 10 Ml) 10 ml IV PRN PRN PRN Reason: LINE FLUSH Physical Examination Vital Signs Temp Pulse Resp BP Pulse Ox 97.8 F 124 H 22 145/85 100 01/03/19 14:19 01/03/19 14:19 01/03/19 14:19 01/03/19 14:19 01/03/19 14:19 Results 01/04/19 04:17 01/04/19 04:17 Cardiac Enzymes 01/04/19 Range/Units 04:17 AST 33 (5-40) units/L CBC 01/04/19 Range/Units 04:17 WBC 7.6 (4.5-11.0) K/mm3 RBC 3.67 (3.65-5.03) M/mm3 Hgb 11.3 (10.1-14.3) gm/dl Hct 34.9 (30.3-42.9) % Plt Count 156 (140-440) K/mm3 Lymph # 1.2 (1.2-5.4) K/mm3 [place] # 1.1 H (0.0-0.8) K/mm3 Eos # 0.0 (0.0-0.4) K/mm3 Baso # 0.0 (0.0-0.1) K/mm3 Comprehensive Metabolic Panel 01/04/19 Range/Units 04:17 Sodium 138 (137-145) mmol/L Potassium 4.2 (3.6-5.0) mmol/L Chloride 101.3 (98-107) mmol/L Carbon Dioxide 21 L (22-30) mmol/L BUN 21 H (7-17) mg/dL Creatinine 0.9 (0.7-1.2) mg/dL Glucose 104 H (65-100) mg/dL Calcium 8.9 (8.4-10.2) mg/dL AST 33 (5-40) units/L ALT 19 (7-56) units/L Alkaline Phosphatase 108 (35-129) units/L Total Protein 6.5 (6.3-8.2) g/dL Albumin 3.6 L (3.9-5) g/dL Assessment and Plan I have seen and evaluated the patient and agree with the assessment and plan.
[2019-01-04] MEDS ORDERED: [UNRECOGNIZED DRUG - OTHER] PO SCH (10:00)
[2019-01-04] MEDS ORDERED: CALTRATE PO SCH (10:00)
[2019-01-04] MEDS ORDERED: MULTIVITAMIN PO SCH (10:00)
[2019-01-04] MEDS ORDERED: [UNRECOGNIZED DRUG - OTHER] PO SCH (10:00)
[2019-01-04] MEDS: CALCIUM CARBONATE/VITAMIN D3 500 MG-200 UNIT TAB PO SCH (10:12)
[2019-01-04] MEDS: APIXABAN 2.5 MG TAB PO SCH ×3 (10:13→21:37)
[2019-01-04] MEDS: MULTIVITAMINS,THER W-MINERALS TAB PO SCH (10:16)
[2019-01-04] MEDS: METOPROLOL TARTRATE 100 MG TAB PO SCH (10:16)
[2019-01-04] MEDS: cefTRIAXone/NS 1 GM/50 ML 1 GM/50 ML BAG IV SCH (10:17)
[2019-01-04] MEDS: LACTOBACILLUS RHAMNOSUS GG 1 EACH CAP PO SCH (10:36)
--- NOTE | 2019-01-04 12:45 | Progress Note ---
Assessment and Plan Assessment and plan: Acute diastolic heart failure. Her latest outpatient echocardiogram reports a normal left ventricular systolic function, ejection fraction 55%. Cardiology consulted. Continue GDMT per cardiology recommendations. Persistent Atrial fibrillation. Continue metoprolol and pradaxa Hypertension. Resume antihypertensive medications. History Interval history: Patient reports that her chest discomfort has improved. Hospitalist Physical - Constitutional Vitals: Temp Pulse Resp BP Pulse Ox 98.6 F 106 H 18 145/86 95 01/04/19 07:30 01/04/19 09:05 01/04/19 07:30 01/04/19 07:30 01/04/19 09:52 General appearance: Present: no acute distress - EENT Eyes: Present: PERRL, EOM intact ENT: hearing intact, clear oral mucosa, dentition normal - Neck Neck: Present: supple, normal ROM - Respiratory Respiratory effort: normal Respiratory: bilateral: CTA - Cardiovascular Rhythm: regular Heart Sounds: Present: S1 & S2. Absent: gallop, rub - Extremities Extremities: no ischemia, No edema, Full ROM - Abdominal General gastrointestinal: soft, non-tender, non-distended, normal bowel sounds - Integumentary Integumentary: Present: clear, warm, dry - Neurologic Neurologic: CNII-XII intact, moves all extremities Results - Labs CBC & Chem 7: 01/04/19 04:17 01/04/19 04:17 Labs: Laboratory Last Values WBC 7.6 K/mm3 (4.5-11.0) 01/04/19 04:17 RBC 3.67 M/mm3 (3.65-5.03) 01/04/19 04:17 Hgb 11.3 gm/dl (10.1-14.3) 01/04/19 04:17 Hct 34.9 % (30.3-42.9) 01/04/19 04:17 MCV 95 fl (79-97) 01/04/19 04:17 MCH 31 pg (28-32) 01/04/19 04:17 MCHC 32 % (30-34) 01/04/19 04:17 RDW 14.6 % (13.2-15.2) 01/04/19 04:17 Plt Count 156 K/mm3 (140-440) 01/04/19 04:17 Lymph % (Auto) 15.8 % (13.4-35.0) 01/04/19 04:17 Mobile % (Auto) 14.6 % (0.0-7.3) H 01/04/19 04:17 Eos % (Auto) 0.4 % (0.0-4.3) 01/04/19 04:17 Baso % (Auto) 0.3 % (0.0-1.8) 01/04/19 04:17 Lymph # 1.2 K/mm3 (1.2-5.4) 01/04/19 04:17 Mobile # 1.1 K/mm3 (0.0-0.8) H 01/04/19 04:17 Eos # 0.0 K/mm3 (0.0-0.4) 01/04/19 04:17 Baso # 0.0 K/mm3 (0.0-0.1) 01/04/19 04:17 Add Manual Diff Complete 01/03/19 14:27 Total Counted 100 01/03/19 14:27 Seg Neutrophils % 68.9 % (40.0-70.0) 01/04/19 04:17 Seg Neuts % (Manual) 83.0 % (40.0-70.0) H 01/03/19 14:27 Band Neutrophils % 0 % 01/03/19 14:27 Lymphocytes % (Manual) 7.0 % (13.4-35.0) L 01/03/19 14:27 Reactive Lymphs % (Man) 0 % 01/03/19 14:27 Monocytes % (Manual) 10.0 % (0.0-7.3) H 01/03/19 14:27 Eosinophils % (Manual) 0 % (0.0-4.3) 01/03/19 14:27 Basophils % (Manual) 0 % (0.0-1.8) 01/03/19 14:27 Metamyelocytes % 0 % 01/03/19 14:27 Myelocytes % 0 % 01/03/19 14:27 Promyelocytes % 0 % 01/03/19 14:27 Blast Cells % 0 % 01/03/19 14:27 Nucleated RBC % Not Reportable 01/03/19 14:27 Seg Neutrophils # 5.3 K/mm3 (1.8-7.7) 01/04/19 04:17 Seg Neutrophils # Man 9.5 K/mm3 (1.8-7.7) H 01/03/19 14:27 Band Neutrophils # 0.0 K/mm3 01/03/19 14:27 Lymphocytes # (Manual) 0.8 K/mm3 (1.2-5.4) L 01/03/19 14:27 Abs React Lymphs (Man) 0.0 K/mm3 01/03/19 14:27 Monocytes # (Manual) 1.1 K/mm3 (0.0-0.8) H 01/03/19 14:27 Eosinophils # (Manual) 0.0 K/mm3 (0.0-0.4) 01/03/19 14:27 Basophils # (Manual) 0.0 K/mm3 (0.0-0.1) 01/03/19 14:27 Metamyelocytes # 0.0 K/mm3 01/03/19 14:27 Myelocytes # 0.0 K/mm3 01/03/19 14:27 Promyelocytes # 0.0 K/mm3 01/03/19 14:27 Blast Cells # 0.0 K/mm3 01/03/19 14:27 WBC Morphology Not Reportable 01/03/19 14:27 Hypersegmented Neuts Not Reportable 01/03/19 14:27 Hyposegmented Neuts Not Reportable 01/03/19 14:27 Hypogranular Neuts Not Reportable 01/03/19 14:27 Smudge Cells Not Reportable 01/03/19 14:27 Toxic Granulation Not Reportable 01/03/19 14:27 Toxic Vacuolation Not Reportable 01/03/19 14:27 Dohle Bodies Not Reportable 01/03/19 14:27 Pelger-Huet Anomaly Not Reportable 01/03/19 14:27 Ifeanyi Rods Not Reportable 01/03/19 14:27 Platelet Estimate Not Reportable 01/03/19 14:27 Clumped Platelets Not Reportable 01/03/19 14:27 Plt Clumps, EDTA Not Reportable 01/03/19 14:27 Large Platelets Not Reportable 01/03/19 14:27 Giant Platelets Not Reportable 01/03/19 14:27 Platelet Satelliting Not Reportable 01/03/19 14:27 Plt Morphology Comment Not Reportable 01/03/19 14:27 RBC Morphology Normal 01/03/19 14:27 Dimorphic RBCs Not Reportable 01/03/19 14:27 Polychromasia Not Reportable 01/03/19 14:27 Hypochromasia Not Reportable 01/03/19 14:27 Poikilocytosis Not Reportable 01/03/19 14:27 Anisocytosis Not Reportable 01/03/19 14:27 Microcytosis Not Reportable 01/03/19 14:27 Macrocytosis Not Reportable 01/03/19 14:27 Spherocytes Not Reportable 01/03/19 14:27 Pappenheimer Bodies Not Reportable 01/03/19 14:27 Sickle Cells Not Reportable 01/03/19 14:27 Target Cells Not Reportable 01/03/19 14:27 Tear Drop Cells Not Reportable 01/03/19 14:27 Ovalocytes Not Reportable 01/03/19 14:27 Helmet Cells Not Reportable 01/03/19 14:27 [place] Bodies Not Reportable 01/03/19 14:27 [place] Rings Not Reportable 01/03/19 14:27 [place] Cells Not Reportable 01/03/19 14:27 Bite Cells Not Reportable 01/03/19 14:27 Crenated Cell Not Reportable 01/03/19 14:27 Elliptocytes Not Reportable 01/03/19 14:27 Acanthocytes (Spur) Not Reportable 01/03/19 14:27 Rouleaux Not Reportable 01/03/19 14:27 Hemoglobin C Crystals Not Reportable 01/03/19 14:27 Schistocytes Not Reportable 01/03/19 14:27 Malaria parasites Not Reportable 01/03/19 14:27 Donald Bodies Not Reportable 01/03/19 14:27 Hem Pathologist Commnt No 01/03/19 14:27 PT 14.9 Sec. (12.2-14.9) 01/03/19 14:27 INR 1.18 (0.87-1.13) H 01/03/19 14:27 APTT 33.2 Sec. (24.2-36.6) 01/03/19 14:27 Sodium 138 mmol/L (137-145) 01/04/19 04:17 Potassium 4.2 mmol/L (3.6-5.0) 01/04/19 04:17 Chloride 101.3 mmol/L (98-107) 01/04/19 04:17 Carbon Dioxide 21 mmol/L (22-30) L 01/04/19 04:17 Anion Gap 20 mmol/L 01/04/19 04:17 BUN 21 mg/dL (7-17) H 01/04/19 04:17 Creatinine 0.9 mg/dL (0.7-1.2) 01/04/19 04:17 Estimated GFR 59 ml/min 01/04/19 04:17 BUN/Creatinine Ratio 23 % 01/04/19 04:17 Glucose 104 mg/dL (65-100) H 01/04/19 04:17 Lactic Acid 1.40 mmol/L (0.7-2.0) 01/03/19 15:16 Calcium 8.9 mg/dL (8.4-10.2) 01/04/19 04:17 Magnesium 2.00 mg/dL (1.7-2.3) 01/03/19 16:08 Total Bilirubin 1.10 mg/dL (0.1-1.2) 01/04/19 04:17 AST 33 units/L (5-40) 01/04/19 04:17 ALT 19 units/L (7-56) 01/04/19 04:17 Alkaline Phosphatase 108 units/L (35-129) 01/04/19 04:17 Total Creatine Kinase 58 units/L (30-135) 01/03/19 14:48 Troponin T < 0.010 ng/mL (0.00-0.029) 01/03/19 18:23 NT-Pro-B Natriuret Pep 4272 pg/mL (0-900) H 01/03/19 15:16 Total Protein 6.5 g/dL (6.3-8.2) 01/04/19 04:17 Albumin 3.6 g/dL (3.9-5) L 01/04/19 04:17 Albumin/Globulin Ratio 1.2 % 01/04/19 04:17 TSH 0.746 mlU/mL (0.270-4.200) 01/03/19 16:08 Free T4 1.87 ng/dL (0.76-1.46) H 01/03/19 16:08 Urine Color Straw (Yellow) 01/04/19 00:22 Urine Turbidity Clear (Clear) 01/04/19 00:22 Urine pH 5.0 (5.0-7.0) 01/04/19 00:22 Ur Specific [place] 1.008 (1.003-1.030) 01/04/19 00:22 Urine Protein <15 mg/dl mg/dL (Negative) 01/04/19 00:22 Urine Glucose (UA) Neg mg/dL (Negative) 01/04/19 00:22 Urine Ketones Neg mg/dL (Negative) 01/04/19 00:22 Urine Blood Sm (Negative) 01/04/19 00:22 Urine Nitrite Neg (Negative) 01/04/19 00:22 Urine Bilirubin Neg (Negative) 01/04/19 00:22 Urine Urobilinogen < 2.0 mg/dL (<2.0) 01/04/19 00:22 Ur Leukocyte Esterase Tr (Negative) 01/04/19 00:22 Urine WBC (Auto) 5.0 /HPF (0.0-6.0) 01/04/19 00:22 Urine RBC (Auto) 1.0 /HPF (0.0-6.0) 01/04/19 00:22 Urine Mucus Few /HPF 01/04/19 00:22 Active Medications - Current Medications Current Medications: Generic Name Dose Route Start Last Admin Trade Name Robinq PRN Reason Stop Dose Admin Acetaminophen 650 mg 01/03/19 15:59 01/04/19 00:20 Tylenol PO 650 mg Q4H PRN Administration Pain MILD(1-3)/Fever >100.5/TOPETE Apixaban 2.5 mg 01/03/19 17:18 01/04/19 10:13 Eliquis PO 2.5 mg Q12HR [place] Administration Protocol Atorvastatin Calcium 5 mg 01/03/19 22:00 01/03/19 22:02 Atorvastatin PO 5 mg QHS [place] Administration Calcium/Vitamin D 1 each 01/04/19 10:00 01/04/19 10:12 Oysco D 500 Mg-200 Unit PO 1 each DAILY [place] Administration Ceftriaxone Sodium 1 gm in 50 mls @ 100 mls/hr 01/04/19 10:00 01/04/19 10:17 Rocephin/Ns 1 Gm/50 Ml IV 100 mls/hr Q24HR [place] Administration Protocol Lactobacillus Rhamnosus 2 each 01/04/19 10:00 01/04/19 10:36 Culturelle PO 2 each DAILY [place] Administration Metoprolol Tartrate 100 mg 01/04/19 10:00 01/04/19 10:16 Metoprolol PO 100 mg DAILY [place] Administration Multivitamins/Minerals 1 each 01/04/19 10:00 01/04/19 10:16 Theragran-M Tab PO 1 each QDAY [place] Administration Ondansetron HCl 4 mg 01/03/19 15:59 Zofran IV Q8H PRN Nausea And Vomiting Sodium Chloride 10 ml 01/03/19 22:00 01/04/19 10:32 Sodium Chloride Flush Syringe 10 Ml IV 10 ml BID [place] Administration Sodium Chloride 10 ml 01/03/19 15:59 Sodium Chloride Flush Syringe 10 Ml IV PRN PRN LINE FLUSH
[2019-01-05] MEDS: METOPROLOL TARTRATE 100 MG TAB PO SCH (09:33)
[2019-01-05] MEDS: APIXABAN 2.5 MG TAB PO SCH (09:33)
[2019-01-05] MEDS: CALCIUM CARBONATE/VITAMIN D3 500 MG-200 UNIT TAB PO SCH (09:34)
[2019-01-05] MEDS: MULTIVITAMINS,THER W-MINERALS TAB PO SCH (09:34)
[2019-01-05] MEDS: LACTOBACILLUS RHAMNOSUS GG 1 EACH CAP PO SCH (09:35)
[2019-01-05] MEDS: cefTRIAXone/NS 1 GM/50 ML 1 GM/50 ML BAG IV SCH (09:36)
--- NOTE | 2019-01-05 09:52 | Progress Note ---
Assessment and Plan 1. Chronic atrial fibrillation with ventricular response to atrial fibrillation controlled. Outpatient echocardiogram showed normal global and regional LV ejection fraction which is not different from the echo done on this admission showing a left ventricular ejection fraction of 50-55% 2. Essential hypertension 3. Arthritis Plan. Cardiac-crawford stable. Patient is an old an established patient of mine in the office. Will continue present cardiac medication. Follow-up in the office in one to 2 weeks on discharge Subjective Date of service: 01/05/19 Interval history: No cardiac symptoms. Objective Vital Signs Temp Pulse Resp BP Pulse Ox 01/05/19 07:49 98.4 F 111 H 18 139/87 95 01/05/19 03:50 98.0 F 95 H 18 143/89 98 01/05/19 00:06 98.0 F 113 H 18 143/99 92 01/04/19 20:41 87 01/04/19 19:23 98.0 F 87 18 129/89 81 L 01/04/19 17:36 98.3 F 18 136/87 01/04/19 17:00 96 H 01/04/19 12:26 98.8 F 18 129/78 01/04/19 09:52 95 - Physical Examination General: Appears Well HEENT: Positive: PERRL Neck: Positive: neck supple, trachea midline. Negative: JVD/HJR Cardiac: Positive: Irregularly Regular, PMI, Laterally Displaced Lungs: Positive: clear to auscultation, No Wheeze, Rales, Rhonchi Neuro: Positive: Grossly Intact Abdomen: Positive: Unremarkable, Active Bowel Sounds Extremities: Absent: edema
[2019-01-05 11:57] VITALS: BP 121/80
--- NOTE | 2019-01-05 12:03 | Discharge Summary ---
Providers - Providers Date of Admission: 01/03/19 15:59 Date of discharge: 01/05/19 Attending physician: ALYX STEELE 01/03/19 14:48 Consult to Physician [CONS] Urgent Comment: Consulting Provider: ARTUR CASANOVA Physician Instructions: Reason For Exam: afib w rvr Primary care physician: FOOD STYLIST Hospitalization Reason for admission: cp Condition: Stable Hospital course: This is an 88-year-old female presented with chief complaint of chest discomfort and lower extremity edema. Patient was admitted with diagnosis of acute diastolic heart failure and A. fib with RVR. The patient was seen by cardiology in consultation and underwent appropriate GDMT with significant improvement in her heart failure back to her baseline. Her outpatient echocardiogram revealed global and regional left ventricular ejection fraction which was not different from echocardiogram done on this admission showing a LVEF of 50-55%. The patient's rapid ventricular rate resolved with resuming of her home medications. Cardiology felt the patient was stable for discharge home and is to resume her current home medications. No other intervention and patient will be discharged. Dedicated discharge time 32 minutes. Disposition: DC-01 TO HOME OR SELFCARE Time spent for discharge: 32 - Discharge Diagnoses (1) Acute CHF Status: Acute Qualifiers: Heart failure type: systolic Qualified Code(s): I50.21 - Acute systolic (congestive) heart failure (2) Atrial fibrillation with RVR Status: Acute (3) HTN (hypertension) Status: Acute Qualifiers: Hypertension type: essential hypertension Qualified Code(s): I10 - Essential (primary) hypertension Core Measure Documentation - Palliative Care Palliative Care/ Comfort Measures: Not Applicable - Core Measures Any of the following diagnoses?: heart failure - Heart Failure Discharge Requirements BOUCHRA/ARB for LVSD if EF <40%: No Reason for no BOUCHRA/ARB: Hypotension Beta nena at discharge: Yes Exam - Constitutional Vitals: Temp Pulse Resp BP Pulse Ox 98.5 F 87 18 121/80 94 01/05/19 11:38 01/05/19 11:38 01/05/19 11:38 01/05/19 11:38 01/05/19 11:38 General appearance: Present: no acute distress, well-nourished - EENT Eyes: Present: PERRL ENT: hearing intact, clear oral mucosa - Neck Neck: Present: supple, normal ROM - Respiratory Respiratory effort: normal Respiratory: bilateral: CTA - Cardiovascular Heart Sounds: Present: S1 & S2. Absent: rub, click - Extremities Extremities: pulses symmetrical, No edema Peripheral Pulses: within normal limits - Abdominal General gastrointestinal: Present: soft, non-tender, non-distended, normal bowel sounds Female genitourinary: Present: normal - Integumentary Integumentary: Present: clear, warm, dry - Musculoskeletal Musculoskeletal: gait normal, strength equal bilaterally - Psychiatric Psychiatric: appropriate mood/affect, intact judgment & insight - Neurologic Neurologic: CNII-XII intact, moves all extremities Plan Activity: advance as tolerated Weight Bearing Status: Weight Bear as Tolerated Diet: low fat, low cholesterol, low salt Follow up with: PRIMARY CARE, [Primary Care Provider] - 3-5 Days ARTUR CASANOVA MD [Staff Physician] - 7 Days Prescriptions: AtorvaSTATin 5 mg PO DAILY #60 tab Lactobacillus Rhamnosus GG [Culturelle] 2 each PO DAILY #30 capsule Apixaban [Eliquis] 2.5 mg PO Q12HR #60 tablet Metoprolol [Lopressor TAB] 1 tab PO DAILY #30 tab Calc Carb/Vit D 500 mg-200 Uni [Oysco D 500 mg-200 Unit] 1 each PO DAILY #30 tablet
== END 2019-01-05 15:10 | disposition home or self-care (01) | DRG 308 ==
LOC: ED 13:41 → 4A 15:59
PROVIDERS: ADMIT Internal Medicine; ATTEND Hospitalist
DX: I48.19 Other persistent atrial fibrillation (principal); I50.41 Acute combined systolic (congestive) and diastolic (congestive) heart failure; N39.0 Urinary tract infection, site not specified; R65.10 Systemic inflammatory response syndrome (SIRS) of non-infectious origin without acute organ dysfunction; I11.0 Hypertensive heart disease with heart failure; M19.90 Unspecified osteoarthritis, unspecified site; Z79.01 Long term (current) use of anticoagulants; Z90.49 Acquired absence of other specified parts of digestive tract; Z82.49 Family history of ischemic heart disease and other diseases of the circulatory system; Z88.6 Allergy status to analgesic agent; Z88.2 Allergy status to sulfonamides; Z79.899 Other long term (current) drug therapy
CPT/HCPCS: 36415; 71045; 80053; 81001; 82140; 82550; 83735; 83880; 84439; 84443; 84484; 85007; 85025; 85610; 85730; 87040; 93005; 93010; 93306; 96360; G0378; A9270-GY; J0696; J1650; J1940; J7050

== ENCOUNTER 2019-05-09 22:31 | Emergency (ER) | payer MEDICARE ==
[2019-05-09 22:49] VITALS: BP 128/80
[2019-05-10] MEDS ORDERED: NEOMY 3.5 MG/BACIT 400 UNITS/POLY B 5000 UNITS/GM OINT PACKET TP ONE ×2 (03:04)
--- NOTE | 2019-05-10 03:26 | Emergency Department Report ---
ED General Adult HPI - General Chief complaint: Wound/Laceration Stated complaint: LEFT ARM LACERATION Source: patient Mode of arrival: Ambulatory Limitations: No Limitations - History of Present Illness Initial comments: Patient is an 88-year-old white female who presented to the ED with a history of hypertension who presented to the ED with complaint of painful left forearm and upper arm abrasion wounds after she scraped her left arm against a door frame 2 days ago. Patient states that she still has bleeding intermittently from the wounds and that the pain is getting worse. Patient denies fever, chills, nausea, vomiting, numbness and tingling or weakness of left arm, fall, chest pain or shortness of breath, dizziness or change in vision and syncope. MD Complaint: left forearm and upper arm abrasions -: Sudden, days(s) (3) Location: upper extremity (left arm abrasions) Radiation: non-radiation Severity scale (0 -10): 3 Quality: aching, sharp Consistency: constant Improves with: none Worsens with: none Associated Symptoms: denies other symptoms, other (left arm abrasions). denies: confusion, chest pain, cough, diaphoresis, fever/chills, headaches, loss of appetite, malaise, nausea/vomiting, rash, shortness of breath, weakness Treatments Prior to Arrival: none - Related Data Home Medications Medication Instructions Recorded Confirmed Last Taken Acetaminophen [Acetaminophen TAB] 2 tab PO PRN PRN 10/27/14 12/03/16 Unknown Caltrate 600+D3+Min Chew Tab 1 tab PO DAILY 10/27/14 12/03/16 10/27/14 L. Acidophilus/Bifid. Animalis 2 cap PO DAILY 10/27/14 12/03/16 10/27/14 [One-A-Day Trubiotics 2 Bill Cp] One Daily Multivitamin Tablet 1 tab PO DAILY 10/27/14 12/03/16 10/27/14 Previous Rx's Medication Instructions Recorded Last Taken Type Nitrofurantoin Latimer/M-Cryst 100 mg PO Q12HR #10 capsule 12/03/16 Unknown Rx [Macrobid CAP] Apixaban [Eliquis] 2.5 mg PO Q12HR #60 tablet 01/05/19 Unknown Rx AtorvaSTATin 5 mg PO DAILY #60 tab 01/05/19 Unknown Rx Calc Carb/Vit D 500 mg-200 Uni 1 each PO DAILY #30 tablet 01/05/19 Unknown Rx [Oysco D 500 mg-200 Unit] Lactobacillus Rhamnosus GG 2 each PO DAILY #30 capsule 01/05/19 Unknown Rx [Culturelle] Metoprolol [Lopressor TAB] 1 tab PO DAILY #30 tab 01/05/19 Unknown Rx cephALEXin [Keflex] 500 mg PO Q12HR #20 cap 05/10/19 Unknown Rx Allergies Allergy/AdvReac Type Severity Reaction Status Date / Time aspirin Allergy BRUISING Verified 10/27/14 11:29 Sulfa (Sulfonamide Allergy Hives Verified 10/27/14 11:29 Antibiotics) ED Review of Systems ROS: Stated complaint: LEFT ARM LACERATION Other details as noted in HPI Constitutional: denies: chills, fever Eyes: denies: eye pain, eye discharge, vision change ENT: denies: ear pain, throat pain Respiratory: denies: cough, shortness of breath, wheezing Cardiovascular: denies: chest pain, palpitations Endocrine: no symptoms reported Gastrointestinal: denies: abdominal pain, nausea, diarrhea Genitourinary: denies: urgency, dysuria, discharge Musculoskeletal: arthralgia (Left arm pain from abrasion). denies: back pain, joint swelling Skin: other (left arm abrasion wounds). denies: rash, lesions Neurological: denies: headache, weakness, paresthesias Psychiatric: denies: anxiety, depression Hematological/Lymphatic: denies: easy bleeding, easy bruising ED Past Medical Hx - Past Medical History Hx Hypertension: Yes (5YRS) Hx Congestive Heart Failure: No Hx Diabetes: No Hx Asthma: No Hx COPD: No - Surgical History Hx Appendectomy: Yes Additional Surgical History: right kidney, ovaries - Social History Smoking Status: Never Smoker - Medications Home Medications: Home Medications Medication Instructions Recorded Confirmed Last Taken Type Acetaminophen [Acetaminophen TAB] 2 tab PO PRN PRN 10/27/14 12/03/16 Unknown History Caltrate 600+D3+Min Chew Tab 1 tab PO DAILY 10/27/14 12/03/16 10/27/14 History L. Acidophilus/Bifid. Animalis 2 cap PO DAILY 10/27/14 12/03/16 10/27/14 History [One-A-Day Trubiotics 2 Bill Cp] One Daily Multivitamin Tablet 1 tab PO DAILY 10/27/14 12/03/16 10/27/14 History Nitrofurantoin Latimer/M-Cryst 100 mg PO Q12HR #10 capsule 12/03/16 Unknown Rx [Macrobid CAP] Apixaban [Eliquis] 2.5 mg PO Q12HR #60 tablet 01/05/19 Unknown Rx AtorvaSTATin 5 mg PO DAILY #60 tab 01/05/19 Unknown Rx Calc Carb/Vit D 500 mg-200 Uni 1 each PO DAILY #30 tablet 01/05/19 Unknown Rx [Oysco D 500 mg-200 Unit] Lactobacillus Rhamnosus GG 2 each PO DAILY #30 capsule 01/05/19 Unknown Rx [Culturelle] Metoprolol [Lopressor TAB] 1 tab PO DAILY #30 tab 01/05/19 Unknown Rx cephALEXin [Keflex] 500 mg PO Q12HR #20 cap 05/10/19 Unknown Rx ED Physical Exam - General Limitations: No Limitations General appearance: alert, in no apparent distress - Head Head exam: Present: atraumatic, normocephalic, normal inspection - Eye Eye exam: Present: normal appearance, PERRL, EOMI Pupils: Present: normal accommodation - ENT ENT exam: Present: normal exam, normal orophraynx, mucous membranes moist, TM's normal bilaterally, normal external ear exam - Neck Neck exam: Present: normal inspection, full ROM - Respiratory Respiratory exam: Present: normal lung sounds bilaterally. Absent: respiratory distress, wheezes, rales, rhonchi, chest wall tenderness, accessory muscle use, decreased breath sounds - Cardiovascular Cardiovascular Exam: Present: regular rate, normal rhythm, normal heart sounds. Absent: systolic murmur, diastolic murmur, rubs, gallop - GI/Abdominal GI/Abdominal exam: Present: soft, normal bowel sounds. Absent: tenderness, guarding, hyperactive bowel sounds, hypoactive bowel sounds, mass - Extremities Exam Extremities exam: Present: normal inspection, full ROM, tenderness (noderately tender left forearm and upper arm abrasion wounds), normal capillary refill - Back Exam Back exam: Present: normal inspection, full ROM. Absent: tenderness, CVA tenderness (R), muscle spasm, paraspinal tenderness, vertebral tenderness - Neurological Exam Neurological exam: Present: alert, oriented X3, CN II-XII intact, normal gait, reflexes normal - Psychiatric Psychiatric exam: Present: normal affect, normal mood - Skin Skin exam: Present: warm, dry, intact, normal color, abrasion (left forearm and upper arm abrasions). Absent: rash ED Course Vital Signs 05/09/19 05/09/19 22:48 22:49 Temperature 97.7 F Pulse Rate 102 H Respiratory 18 Rate Blood Pressure 128/80 O2 Sat by Pulse 99 Oximetry ED Medical Decision Making - Medical Decision Making This is an 88-year-old female who presented to the ED for evaluation of a recently sustained left arm multiple abrasion wounds. Patient stated that she would like the wound dressed appropriately. Patient is alert and oriented x3 and is not in distress. The left arm multiple abrasions were cleaned with normal saline and Neosporin ointment applied, and a nonstick gauze applied as well as Kerlix. Patient tolerated the procedure well and was discharged home on Keflex 500 mg every 12 hours prophylactically to prevent infection. Patient was advised to follow-up with her primary care physician in 5 to 7 days for reevaluation or return to the ED immediately if symptoms get worse. - Differential Diagnosis Arm abrasions; left arm puncture wounds Critical care attestation.: If time is entered above; I have spent that time in minutes in the direct care of this critically ill patient, excluding procedure time. ED Disposition Clinical Impression: Left arm pain Abrasion of left arm Qualifiers: Encounter type: initial encounter Qualified Code(s): S40.812A - Abrasion of left upper arm, initial encounter Disposition: - TO HOME OR SELFCARE Is pt being admited?: No Does the pt Need Aspirin: No Condition: Stable Instructions: Abrasion (ED), Arthralgia (ED) Additional Instructions: Take medication with food, drink plenty of fluids and follow-up with your primary care physician in 5 to 7 days for reevaluation. Return to the ED immediately if symptoms get worse. Prescriptions: cephALEXin [Keflex] 500 mg PO Q12HR #20 cap Referrals: ARTUR CASANOVA MD [Primary Care Provider] - 3-5 Days Time of Disposition: 03:24 Print Language: DANISH
== END 2019-05-10 03:25 | disposition home or self-care (01) ==
LOC: ED 22:31
DX: S40.812A Abrasion of left upper arm, initial encounter (principal); I10 Essential (primary) hypertension; Z90.49 Acquired absence of other specified parts of digestive tract; Z79.899 Other long term (current) drug therapy; Z88.6 Allergy status to analgesic agent; Z88.2 Allergy status to sulfonamides; X58.XXXA Exposure to other specified factors, initial encounter; Y93.89 Activity, other specified; Y92.89 Other specified places as the place of occurrence of the external cause; Y99.8 Other external cause status
CPT/HCPCS: 99282; A6250

== ENCOUNTER 2019-05-11 11:59 | Emergency (ER) | payer MEDICARE ==
[2019-05-11 13:07] VITALS: BP 129/83
--- NOTE | 2019-05-11 13:12 | Event Note ---
ED Screening Note Date of service: 05/11/19 Time: 13:07 ED Screening Note: This is a 88 y.o. F. that presents to the ER with slow healing wound to [facility]. Patient fell 4 nights ago. Went to [place] when originally fell Monday night. Patient currently taking eliquis. This initial assessment/diagnostic orders/clinical plan/treatment(s) is/are subject to change based on patients health status, clinical progression and re- assessment by fellow clinical providers in the ED. Further treatment and workup at subsequent clinical providers discretion. Patient/guardian urged not to elope from the ED as their condition may be serious if not clinically assessed and managed. Initial orders include: ACC for further evaluation
--- NOTE | 2019-05-11 15:16 | Emergency Department Report ---
Chief Complaint: Extremity Injury, Upper Stated Complaint: LFT ARM PAIN/BLEEDING Time Seen by Provider: 05/11/19 13:06 - HPI History of Present Illness: Patient is 88-year-old female who suffered a skin tear to the left upper extremity several days ago. In the interim the patient had some Dermabond placed on the wound. Patient is returned stating that she has some increased swelling at the area of 1 of her skin tears. States that the area is hard. Patient has no new injuries at this time. - ROS Review of Systems: All of the systems are reviewed and are negative - Exam Vital Signs: Vital Signs 05/11/19 12:18 Temperature 97.5 F L Pulse Rate 104 H Respiratory 20 Rate Blood Pressure 129/83 O2 Sat by Pulse 98 Oximetry Physical Exam: Patient's left upper extremity shows several skin tears. On the forearm there is one area that appears to have a quarter sized area of fresh clot underneath the Dermabond. MSE screening note: Focused history and physical exam performed. Due to findings the following was ordered: ED Medical Decision Making - Medical Decision Making The Dermabond was peeled off and the wound irrigated. The fresh clots of blood was removed. Patient had no further bleeding at this time the wound was dressed with Xeroform gauze and the patient will be discharged to follow with wound care. ED Disposition for MSE Clinical Impression: Hematoma Abrasion of left arm Qualifiers: Encounter type: subsequent encounter Qualified Code(s): S40.812D - Abrasion of left upper arm, subsequent encounter Disposition: MED SCREENING EXAM-LEFT Is pt being admited?: No Does the pt Need Aspirin: No Condition: Stable [facility]errals: [facility]Outside[facility] - 3-5 Days Time of Disposition: 15:16
== END 2019-05-11 15:28 | disposition left against medical advice (07) ==
LOC: ED 11:59
DX: S40.022D Contusion of left upper arm, subsequent encounter (principal); I10 Essential (primary) hypertension; Z98.890 Other specified postprocedural states; X58.XXXD Exposure to other specified factors, subsequent encounter; Y93.89 Activity, other specified; Y92.89 Other specified places as the place of occurrence of the external cause; Y99.8 Other external cause status
CPT/HCPCS: 99282

== ENCOUNTER 2019-05-23 09:52 | Outpatient (CLI) | payer MEDICARE ==
[2019-05-23] MEDS ORDERED: LIDOCAINE (4%) 40 MG/ML TOPICAL SOLN 50 ML BOTTLE TP ONE (11:00)
== END 2019-05-23 09:53 | disposition home or self-care (01) ==
LOC: WOUND 09:52
PROVIDERS: ATTEND Surgery
DX: S51.002A Unspecified open wound of left elbow, initial encounter (principal); S51.802A Unspecified open wound of left forearm, initial encounter; I50.9 Heart failure, unspecified; I48.91 Unspecified atrial fibrillation; H91.90 Unspecified hearing loss, unspecified ear; Z90.49 Acquired absence of other specified parts of digestive tract; Z90.710 Acquired absence of both cervix and uterus; W19.XXXA Unspecified fall, initial encounter; Y93.89 Activity, other specified; Y92.89 Other specified places as the place of occurrence of the external cause; Y99.8 Other external cause status
CPT/HCPCS: 99215; G0463

== ENCOUNTER 2019-06-06 10:51 | Outpatient (CLI) | payer MEDICARE ==
[2019-06-06] MEDS ORDERED: SILVER NITRATE APPLICATOR 1 EA TP ONE (12:00)
[2019-06-06] MEDS ORDERED: LIDOCAINE (4%) 40 MG/ML TOPICAL SOLN 50 ML BOTTLE TP ONE (12:00)
== END 2019-06-06 10:52 | disposition home or self-care (01) ==
LOC: WOUND 10:51
PROVIDERS: ATTEND Surgery
DX: S51.002A Unspecified open wound of left elbow, initial encounter (principal); S51.802A Unspecified open wound of left forearm, initial encounter; I50.9 Heart failure, unspecified; I48.91 Unspecified atrial fibrillation; H91.90 Unspecified hearing loss, unspecified ear; Z90.49 Acquired absence of other specified parts of digestive tract; Z90.710 Acquired absence of both cervix and uterus

== ENCOUNTER 2019-06-20 10:45 | Outpatient (CLI) | payer MEDICARE | END 2019-06-20 10:46 | disposition home or self-care (01) | LOC: WOUND 10:45 | PROVIDERS: ATTEND Surgery | DX: S51.802D Unspecified open wound of left forearm, subsequent encounter (principal); I50.9 Heart failure, unspecified; I48.91 Unspecified atrial fibrillation; H91.90 Unspecified hearing loss, unspecified ear; Z90.49 Acquired absence of other specified parts of digestive tract; Z90.710 Acquired absence of both cervix and uterus; X58.XXXD Exposure to other specified factors, subsequent encounter | CPT/HCPCS: 99213; G0463 ==